=== PATIENT | female | born 1975 | race Caucasian/White ===

== ENCOUNTER 2018-03-07 13:36 | Emergency (ER) | payer BC ==
[~2018-03-07] VITALS: Ht 170.1 cm; Wt 99.8 kg
[2018-03-07 14:51] LABS: BASO # 0.1 10*3/uL (0.0-0.1); EOS # 0.3 10*3/uL (0.0-0.4); EOS % 3.6 % (1.0-4.0); HEMATOCRIT 40.3 % (37.0-47.0); HEMOGLOBIN 13.8 g/dl (12.0-16.0); LYMPH # 2.5 10*3/uL (1.3-4.4); LYMPH % 27.5 % (27.0-41.0); MEAN CELL VOLUME 80.9 fl (81.0-99.0); MEAN CORPUSCULAR HGB 27.7 pg (27.0-31.0); MEAN CORPUSCULAR HGB CONC 34.2 g/dl (33.0-37.0); MEAN PLATELET VOLUME 9.3 fl (9.6-12.3); MONO # 0.3 10*3/uL (0.1-1.0); MONO % 3.5 % (3.0-9.0); NEUT # 5.9 10*3/uL (2.3-7.9); NEUT % 63.9 % (47.0-73.0); PLATELET COUNT AUTOMATED 265 10*3/uL (130-400); RED BLOOD COUNT 4.98 10*6/uL (4.10-5.10); RED CELL DISTRI WIDTH 13.5 % (0-14.5); WHITE BLOOD COUNT 9.2 10*3/uL (4.8-10.8)
[2018-03-07 15:07] LABS: BUN 7 mg/dl (7-24); CHLORIDE 103 mmol/L (98-107); CREATININE 0.66 mg/dL (0.55-1.02); POTASSIUM 3.6 mmol/L (3.5-5.1); SODIUM 138 mmol/L (136-145)
[2018-03-07 15:12] LABS: TROPONIN I < 0.015 ng/ml (<0.045)
[2018-03-07 15:17] LABS: ACT PARTIAL THROMBO TIME 23.4 SECONDS (20.8-31.5)
== END 2018-03-07 15:29 | disposition home or self-care (01) ==
LOC: ED 13:36
PROVIDERS: Emergency Medicine
DX: R00.2 Palpitations (principal); Z87.891 Personal history of nicotine dependence

== ENCOUNTER → 2018-07-27 | Outpatient (CLI) | payer BC | END | disposition home or self-care (01) | LOC: CARD 10:00 | DX: R00.0 Tachycardia, unspecified (principal); R55 Syncope and collapse ==

== ENCOUNTER → 2018-08-17 | Outpatient (CLI) | payer BC | END | disposition home or self-care (01) | LOC: CARD 08:22 | DX: I34.0 Nonrheumatic mitral (valve) insufficiency (principal); R55 Syncope and collapse ==

== ENCOUNTER 2020-03-04 09:25 | Emergency (ER) | payer BC ==
[~2020-03-04] VITALS: Ht 170.1 cm; Wt 93.0 kg
[2020-03-04 09:55] LABS: BASO # 0.1 10*3/uL (0.0-0.1); BASO % 1.2 % (0.0-1.0); EOS # 0.2 10*3/uL (0.0-0.4); EOS % 2.1 % (1.0-4.0); HEMATOCRIT 37.6 % (37.0-47.0); LYMPH # 2.5 10*3/uL (1.3-4.4); LYMPH % 23.8 % (27.0-41.0); MEAN CELL VOLUME 82.6 fl (81.0-99.0); MEAN CORPUSCULAR HGB 28.8 pg (27.0-31.0); MEAN CORPUSCULAR HGB CONC 34.8 g/dl (33.0-37.0); MEAN PLATELET VOLUME 9.6 fl (9.6-12.3); MONO # 0.5 10*3/uL (0.1-1.0); MONO % 5.1 % (3.0-9.0); NEUT % 67.3 % (47.0-73.0); PLATELET COUNT AUTOMATED 293 10*3/uL (130-400); RED BLOOD COUNT 4.55 10*6/uL (4.10-5.10); RED CELL DISTRI WIDTH 13.4 % (0-14.5); WHITE BLOOD COUNT 10.4 10*3/uL (4.8-10.8)
[2020-03-04 10:10] LABS: ALBUMIN 3.6 gm/dl (3.1-4.5); ALKALINE PHOSPHATASE 93 U/L (45-117); BUN 12 mg/dl (7-24); CHLORIDE 109 mmol/L (98-107); CREATININE 0.76 mg/dL (0.55-1.02); LIPASE 138 U/L (73-393); POTASSIUM 3.9 mmol/L (3.5-5.1); SGOT/AST 20 IU/L (3-35); SGPT/ALT 20 U/L (12-78); SODIUM 136 mmol/L (136-145); TOTAL PROTEIN 7.4 gm/dL (6.4-8.2)
[2020-03-04 10:57] LABS: BILIRUBIN NEGATIVE (NEGATIVE); BLOOD NEGATIVE (NEGATIVE); CLARITY SL CLOUDY (CLEAR); COLOR YELLOW (YELLOW); EPITHELIAL CELLS 16-20; GLUCOSE NEGATIVE (NEGATIVE); KETONE NEGATIVE (NEGATIVE); LEUKO ESTERASE NEGATIVE (NEGATIVE); NITRITE NEGATIVE (NEGATIVE); UROBILINOGEN 0.2 E.U./dl (0.2-1.0)
[2020-03-04 10:58] LABS: BACTERIA 2+; CALCIUM OXALATE CRYSTALS TRACE
[2020-03-04] MEDS ORDERED: COLACE100 MG PO (11:17)
[2020-03-04] MEDS ORDERED: MIRALAX119 GM PO (11:17)
== END 2020-03-04 11:57 | disposition home or self-care (01) ==
LOC: ED 09:25
PROVIDERS: Nurse Practitioner Family
DX: K59.00 Constipation, unspecified (principal); K21.9 Gastro-esophageal reflux disease without esophagitis; M79.7 Fibromyalgia; I10 Essential (primary) hypertension; Z90.49 Acquired absence of other specified parts of digestive tract